=== PATIENT | female | born 1965 | race African-American/Black ===

== ENCOUNTER 2021-10-25 16:12 | Inpatient (IN) ==
[2021-10-25 21:12] LABS: Basophils % 0.2 % (0.0-0.8); Hematocrit 48.6 VOL% (35.7-47.0); Hemoglobin 15.3 GM/DL (12.0-16.0); Immature Granulocytes % 0.4 %; Immature Granulocytes Absolute 0.02 #; Lymphocytes # 1.4 10*3/uL (1.4-4.0); Lymphocytes % 26.7 % (21.3-54.2); Mean Corpuscular HGB Conc 31.5 GM/DL (32-36); Mean Platelet Volume 12.6 FL (9.6-12.0); Monocytes % 10.4 % (1.7-12.7); Neutrophils % 62.3 % (38.7-73.9); Platelet Count 192 T/CUMM (130-400); Red Blood Count 5.01 MC/CUMM (3.8-5.5); Red Cell Distribution Width 14.1 % (9.3-17.3); White Blood Count 5.3 T/CUMM (4-12)
[2021-10-25] MEDS ORDERED: KETOROLAC 30 MG/1 ML VIAL IV STA (21:27)
[2021-10-25] MEDS ORDERED: ONDANSETRON 4 MG/2 ML VIAL IV STA (21:27)
[2021-10-25] MEDS ORDERED: SODIUM CHLORIDE 0.9% 1,000 ML IV STA (21:28)
[2021-10-25 21:44] LABS: Albumin 3.8 G/DL (3.4-5.0); Bilirubin,Total 0.5 MG/DL (0.20-1.00); Calcium 9.1 MG/DL (8.5-10.1); Osmolality,Calculated 284.4 MOS/KG (273-304); Potassium 4.2 MMOL/L (3.5-5.1); Total Protein 7.9 G/DL (6.4-8.2)
[2021-10-25] MEDS ORDERED: DEXAMETHASONE 4 MG/1 ML VIAL IV STA (21:58)
[2021-10-25] MEDS ORDERED: hydrALAZINE 20 MG/1 ML VIAL IV PRN (22:02)
[2021-10-25] MEDS ORDERED: ACETAMINOPHEN 325 MG TABLET PO PRN (22:02)
[2021-10-25] MEDS ORDERED: GLUCAGON 1 MG VIAL IM PRN (22:02)
[2021-10-25] MEDS ORDERED: ZALEPLON 5 MG CAPSULE PO PRN (22:02)
[2021-10-25] MEDS ORDERED: NICOTINE 21 MG/24 HR PATCH TRANSDERM PRN (22:02)
[2021-10-25] MEDS ORDERED: guaiFENesin/DM ER 600-30 MG TABLET PO PRN (22:02)
[2021-10-25] MEDS ORDERED: diphenhydrAMINE CAP 25 MG CAPSULE PO PRN (22:02)
[2021-10-25] MEDS ORDERED: BISACODYL 5 MG TABLET PO PRN (22:02)
[2021-10-25] MEDS ORDERED: ONDANSETRON 4 MG/2 ML VIAL IV PRN (22:02)
[2021-10-25] MEDS ORDERED: DEXTROSE 50% 25 GM/50 ML SYRINGE IV PRN (22:17)
[2021-10-25 22:19] LABS: Bacteria,Urine Few /HPF (Few); Bilirubin,Urine Negative (Negative); Blood, Urine Negative (Negative); Glucose,Urine (UA) 50 mg/dL (Negative); Hyaline Casts,Urine 25 /LPF (0-3); Ketones,Urine 5 mg/dL (Negative); Mucus,Urine Many /LPF (Occasional); Nitrite,Urine Negative (Negative); Protein,Urine 100 MG/DL; RBC,Urine 8 /HPF (0-4); Squamous Epithelial Cell,Urine Occasional /HPF (0-10); Urine Appearance CLOUDY (Clear); Urine Color Amber (Yellow); Urine Specific Gravity 1.027 (1.001-1.035)
[2021-10-26] MEDS ORDERED: REMDESIVIR 200 MG in SODIUM CHLORIDE 0.9% 210 ML IV ONE
[2021-10-26] MEDS: HEPARIN 5,000 UNIT/1 ML VIAL SUBCUT SCH ×2 (00:20→10:53)
[2021-10-26] MEDS: ALBUTEROL INHALER 18 GM INH SCH ×4 (01:31→19:00)
[2021-10-26 04:25] LABS: Hematocrit 43.1 VOL% (35.7-47.0); Lymphocytes # 0.7 10*3/uL (1.4-4.0); Lymphocytes % 19.7 % (21.3-54.2); Mean Corpuscular HGB Conc 32.5 GM/DL (32-36); Mean Corpuscular Volume 95.6 FL (87-102); Monocytes % 4.8 % (1.7-12.7); Neutrophils % 75.5 % (38.7-73.9); Platelet Count 156 T/CUMM (130-400); Red Blood Count 4.51 MC/CUMM (3.8-5.5); White Blood Count 3.5 T/CUMM (4-12)
[2021-10-26 04:53] LABS: Calcium 8.4 MG/DL (8.5-10.1); Osmolality,Calculated 284.5 MOS/KG (273-304); Potassium 3.6 MMOL/L (3.5-5.1)
[2021-10-26] MEDS: PANTOPRAZOLE 40 MG TABLET PO SCH (08:31)
[2021-10-26] MEDS: FAMOTIDINE 20 MG TABLET PO SCH ×2 (08:31→21:26)
[2021-10-26] MEDS: ZINC GLUCONATE 50 MG TABLET PO SCH (08:31)
[2021-10-26] MEDS: ASCORBIC ACID 500 MG TABLET PO SCH ×2 (08:31→21:26)
[2021-10-26] MEDS: CHOLECALCIFEROL 1,000 UNIT TABLET PO SCH (08:31)
[2021-10-26] MEDS: DEXAMETHASONE 10 MG/1 ML VIAL IV SCH (09:01)
[2021-10-26] MEDS: AZITHROMYCIN INJ 500 MG in SODIUM CHLORIDE 0.9% 250 ML IV SCH (09:02)
[2021-10-26] MEDS ORDERED: cefTRIAXone 1,000 MG in SODIUM CHLORIDE 0.9% 100 ML IV SCH (21:00)
[2021-10-27] MEDS: HEPARIN 5,000 UNIT/1 ML VIAL SUBCUT SCH (00:38)
[2021-10-27] MEDS: ALBUTEROL INHALER 18 GM INH SCH ×2 (03:10→07:20)
[2021-10-27] MEDS ORDERED: REMDESIVIR 100 MG in SODIUM CHLORIDE 0.9% 100 ML IV SCH (09:00)
[2021-10-27] MEDS: DEXAMETHASONE 10 MG/1 ML VIAL IV SCH (09:50)
[2021-10-27] MEDS: ZINC GLUCONATE 50 MG TABLET PO SCH (09:51)
[2021-10-27] MEDS: ASCORBIC ACID 500 MG TABLET PO SCH (09:51)
[2021-10-27] MEDS: CHOLECALCIFEROL 1,000 UNIT TABLET PO SCH (09:51)
[2021-10-27] MEDS: PANTOPRAZOLE 40 MG TABLET PO SCH (09:51)
[2021-10-27] MEDS: FAMOTIDINE 20 MG TABLET PO SCH (09:51)
[2021-10-27] MEDS: AZITHROMYCIN INJ 500 MG in SODIUM CHLORIDE 0.9% 250 ML IV SCH (09:55)
[2021-10-27 12:55] VITALS: BP 100/67
== END 2021-10-27 12:55 | disposition home or self-care (01) | DRG 177 ==
LOC: N.ED 16:12 → N.EDINP 22:02 → SUATTDRO 22:02 → N.EDINP 10-27 13:10
PROVIDERS: ADMIT Internal Medicine; ATTEND Internal Medicine